=== PATIENT | male | born 1980 | race Two or more races ===

== ENCOUNTER 2021-02-27 16:43 | Emergency (ER) | payer OTHER ==
[~2021-02-27] VITALS: Ht 167.6 cm; Wt 65.6 kg
[2021-02-27 17:28] LABS: BASO % 0 % (0-3); EOS # 0.1 x10^3/uL (0.0-0.7); EOS % 1 % (0-3); HEMATOCRIT 44.2 % (39.0-53.0); HEMOGLOBIN 14.7 g/dL (13.0-17.5); LYMPH # 0.7 x10^3/uL (1.0-4.8); LYMPH % 7 % (24-48); MEAN CORPUSCULAR HEMOGLOBIN 27 pg (25-35); MEAN CORPUSCULAR HGB CONC 33 g/dL (31-37); MEAN CORPUSCULAR VOLUME 81 fL (79-100); MONO # 0.6 x10^3/uL (0.0-1.1); MONO % 6 % (0-9); NEUT # 7.6 x10^3uL (1.8-7.7); NEUT % 85 % (31-73); PLATELET COUNT 183 x10^3/uL (140-400); RED BLOOD COUNT 5.44 x10^6/uL (4.30-5.70); RED CELL DISTRIBUTION WIDTH 12.3 % (11.5-14.5)
[2021-02-27] MEDS: ONDANSETRON PF 4 MG/2 ML VIAL. IVP ONE (17:30)
[2021-02-27] MEDS: IV RINGERS SOLUTION,LACTATED 1,000 ML IV ONE (17:30)
[2021-02-27] MEDS: MORPHINE SULFATE 4 MG/ML DISP.SYRIN. IV ONE (17:30)
--- NOTE | 2021-02-27 17:32 | PHYS DOC ---
Past History Past Surgical History: No Surgical History (DENISE CANDELARIO) Alcohol Use: Rarely (DENISE CANDELARIO) General Adult EDM: Chief Complaint: ABDOMINAL PAIN HPI: HPI: Patient is a 40 year old male who presents with abdominal pain, N/V/D since 0800 this morning. Patient rates his pain 10/10 nonradiating periumbilical abdominal pain. Patient reports associated chills and a fever of 102-103 F at home. Patient last took Tylenol 3 hours ago. He reports 3 episodes of emesis and 10 episodes of diarrhea today. Patient states that this "always happens after the flu shot," within the first 30 days. Patient reports he had his flu vaccine 02/12/2021. He was vaccinated against COVID-19, and had a rapid swab result negative today. Patient denies bloody emesis or bloody stools. He denies any recent travel or sick contacts. (DENISE CANDELARIO) Review of Systems: Review of Systems: 12 systems reviewed. ROS negative except as mentioned in HPI. (DENISE CANDELARIO) Current Medications: Current Meds: Current Medications Medications (Trade) Dose Ordered Sig/Cornell Start Time Stop Time Status Last Admin Dose Admin Lactated Ringer's 1,000 ml @ 1,000 mls/hr 1X ONCE 02/27/21 17:30 02/27/21 18:29 UNV (DENISE CANDELARIO) Allergies: Allergies: Allergies Coded Allergies Type Severity Reaction Last Updated Verified No Known Drug Allergies 02/27/21 No (DENISE CANDELARIO) Physical Exam: PE: Constitutional: Well developed, well nourished, non-toxic appearance. Patient is uncomfortable on exam, sitting hunched over holding his abdomen and rocking back and forth. Cardiovascular: Heart rate regular rhythm, no murmur. Lungs & Thorax: Bilateral breath sounds clear to auscultation. Abdomen: Bowel sounds normal, soft, no tenderness, no masses, no pulsatile masses. Skin: Warm, dry, no erythema, no rash. Back: No step-offs, no tenderness, no CVA tenderness. Neurologic: Alert and oriented x4, motor function grossly intact, sensory function grossly intact, no focal deficits noted. (DENISE CANDELARIO) Current Patient Data: Vital Signs: Vital Signs Date Time Temp Pulse Resp B/P (MAP) Pulse Ox O2 Delivery O2 Flow Rate FiO2 02/27/21 19:58 103.1 98 16 128/66 (86) 98 Room Air 02/27/21 19:28 94 16 112/70 (84) 99 Room Air 02/27/21 17:30 16 02/27/21 16:58 99.7 101 16 109/66 (80) 99 Room Air (DENISE CANDELARIO) Heart Score: C/O Chest Pain: No (DENISE CANDELARIO) Course & Med Decision Making: Course & Med Decision Making Pertinent Labs and Imaging studies reviewed. (See chart for details) Patient reports his current symptoms are typical for him after influenza vaccination. Patient's nausea, vomiting and diarrhea will be addressed here in the emergency department. Lab work reassuring and patient does not appear to have electrolyte abnormalities or show signs of dehydration despite multiple episodes of emesis and diarrhea. Patient symptoms much improved. Patient feels well enough to be discharged home. He does still have a fever, however discussed alternating between ibuprofen and acetaminophen every 4 hours to control his fever. He should return if his resume or worsen. Patient understands and is agreeable to discharge plan. (DENISE CANDELARIO) Dragon Disclaimer: Dragon Disclaimer: This electronic medical record was generated, in whole or in part, using a voice recognition dictation system. (DENISE CANDELARIO) Departure Departure: Impression: Primary Impression: Nausea, vomiting, and diarrhea Disposition: HOME / SELF CARE / HOMELESS Condition: STABLE Referrals: KAILA BEJARANO (PCP) Patient Instructions: Diet for Diarrhea, Adult Additional Instructions: As discussed, you may take [id number] antidiarrheals to treat your current symptoms. Additionally, you need to alternate between ibuprofen and acetaminophen every 4 hours for generalized body discomfort, headache and/or fever. Please return to the emergency department if your symptoms worsen or you develop new symptoms. Attending Signature Attending Signature I have reviewed the PA/DIRECTOR [employer]'s note and plan of care. I was available for consultation as needed during the patient's visit in the emergency department. I agree with the clinical impression, plan, and disposition. (RADHA LAKE DO) DENISE CANDELARIO Feb 27, 2021 17:31 RADHA LAKE DO Feb 27, 2021 22:16
[2021-02-27 17:43] LABS: GFR 83.6; POTASSIUM 3.5 mmol/L (3.5-5.1)
[2021-02-27 17:47] LABS: ALBUMIN 4.1 g/dL (3.4-5.0); MAGNESIUM 1.7 mg/dL (1.8-2.4); TOTAL BILIRUBIN 0.5 mg/dL (0.2-1.0); TOTAL PROTEIN 8.2 g/dL (6.4-8.2)
[2021-02-27 18:32] LABS: BACTERIA,URINE 0 /HPF (0-FEW); BILIRUBIN,URINE NEG (NEG); CLARITY,URINE CLEAR; COLOR,URINE YELLOW; GLUCOSE,URINE NEG (NEG); NITRITE,URINE NEG (NEG); RBC,URINE 0 /HPF (0-2); SQUAMOUS EPITHELIAL CELL,UR OCC /LPF; UROBILINOGEN,URINE 0.2 mg/dL (0.2 mg/dL); WBC,URINE OCC /HPF (0-4)
[2021-02-27] MEDS: LOPERAMIDE 2 MG CAPSULE PO ONE (18:45)
[2021-02-27 19:58] VITALS: BP 128/66
[2021-02-27] MEDS: IBUPROFEN 600 MG TABLET. PO ONE (20:15)
== END 2021-02-27 20:21 | disposition home or self-care (01) ==
LOC: ER 16:43
DX: R11.2 Nausea with vomiting, unspecified (principal); R19.7 Diarrhea, unspecified; R10.33 Periumbilical pain; Z20.822 Contact with and (suspected) exposure to COVID-19
CPT/HCPCS: 36415; 80053; 81001; 83690; 83735; 85025; 96361; 96374; 96375; 99284; C9803; J2270; J2405; J7120; U0003